=== PATIENT | male | born 1980 | race Caucasian/White ===

== ENCOUNTER 2017-06-12 21:03 | Emergency (ER) | payer OTHER ==
[~2017-06-12] VITALS: Ht 177.8 cm; Wt 120.2 kg
[~2017-06-12 21:03] MED LIST: AMOXICILLIN500 MG PO; ANTIBIOTIC O500 U/GM TP; ATIVAN2 MG PO; CLARITIN10 MG PO; CYMBALTA30 MG PO; FLEXERIL10 MG PO; FLEXERIL5 MG PO; FLONASE ALLERG9.9 ML NAS; HYDROCODONE BIT1 T11 PO; NAPROSYN500 MG PO; NKHM; NORFLEX100 MG PO; PREDNISONE10 MG PO; TOBRADEX 0.1%-0.5 ML OPH; ULTRAM50 MG PO; VICODIN ES 7501 TAB PO
[2017-06-12] MEDS ORDERED: NORCO 5-325 TA1 EACH PO (22:35)
[2017-06-12] MEDS ORDERED: MEDROL DOSEPAK4 MG PO (22:35)
[2017-06-12] MEDS ORDERED: Orphenadrine C100 MG PO (22:35)
== END 2017-06-12 22:50 | disposition home or self-care (01) ==
LOC: ED 21:03
DX: M54.31 Sciatica, right side (principal); Z79.899 Other long term (current) drug therapy

== ENCOUNTER → 2017-06-16 | Outpatient (CLI) | payer OTHER ==
[~2017-06-16] MED LIST changes: +MEDROL DOSEPAK4 MG PO; +NORCO 5-325 TA1 EACH PO; +Orphenadrine C100 MG PO
[2017-06-16 11:58] LABS: HEMOGLOBIN 17.4 g/dl (14.0-18.0); MEAN CELL VOLUME 88.5 fl (80.0-94.0); MEAN CORPUSCULAR HGB 30.2 pg (27.0-31.0); MEAN CORPUSCULAR HGB CONC 34.1 g/dl (33.0-37.0); MEAN PLATELET VOLUME 8.9 fl (9.6-12.3); PLATELET COUNT AUTOMATED 481 10*3/uL (130-400); RED BLOOD COUNT 5.76 10*6/uL (4.50-5.90); RED CELL DISTRI WIDTH 12.5 % (0-14.5); WHITE BLOOD COUNT 19.9 10*3/uL (4.8-10.8)
[2017-06-16 12:28] LABS: BASOPHILS 2 % (0-1); PLATELET SUFFICIENCY HIGH (NORMAL); TOTAL CELLS COUNTED 100 #CELLS
[2017-06-16 12:30] LABS: ALBUMIN 4.5 gm/dl (3.1-4.5); ALKALINE PHOSPHATASE 54 U/L (45-117); BUN 17 mg/dl (7-24); CHLORIDE 104 mmol/L (98-107); CHOLESTEROL 243 mg/dL (<200); CREATININE 0.91 mg/dL (0.70-1.30); HDL CHOLESTEROL 44 mg/dl (40-60); LDL CHOLESTEROL 159 mg/dL (9-159); POTASSIUM 3.9 mmol/L (3.5-5.1); SGOT/AST 13 IU/L (3-35); SGPT/ALT 43 U/L (12-78); SODIUM 139 mmol/L (136-145); TOTAL PROTEIN 8.1 gm/dL (6.4-8.2); TRIGLYCERIDES 200 mg/dl (<150); VLDL CHOLESTEROL 40 mg/dL (6-40)
[2017-06-16 13:10] LABS: VITAMIN D, 25-HYDROXY 26.9 ng/mL (30-100)
== END | disposition home or self-care (01) ==
LOC: RESCLI 06-15 07:54
PROVIDERS: Hospitalist
DX: Z00.01 Encounter for general adult medical examination with abnormal findings (principal); M54.5 Low back pain; G89.29 Other chronic pain; F41.8 Other specified anxiety disorders; I10 Essential (primary) hypertension

== ENCOUNTER → 2017-07-13 | Outpatient (CLI) | payer OTHER | END | disposition home or self-care (01) | LOC: RESCLI 02:05 | DX: I10 Essential (primary) hypertension (principal); M54.5 Low back pain; F41.8 Other specified anxiety disorders; E78.2 Mixed hyperlipidemia; E55.9 Vitamin D deficiency, unspecified; F32.9 Major depressive disorder, single episode, unspecified ==

== ENCOUNTER 2017-07-25 01:25 | Emergency (ER) | payer OTHER ==
[~2017-07-25] VITALS: Ht 177.8 cm; Wt 126.1 kg
[2017-07-25] MEDS ORDERED: GEODON20 MG PO (01:31)
[2017-07-25] MEDS ORDERED: PRINIVIL5 M1 PO (01:31)
[2017-07-25] MEDS ORDERED: ZOCOR40 MG PO (01:32)
[2017-07-25] MEDS ORDERED: CEPHALEXIN500 M1 PO (01:36)
== END 2017-07-25 01:59 | disposition home or self-care (01) ==
LOC: ED 01:25
DX: T63.301A Toxic effect of unspecified spider venom, accidental (unintentional), initial encounter (principal); Z79.899 Other long term (current) drug therapy; Y92.89 Other specified places as the place of occurrence of the external cause

== ENCOUNTER 2018-08-30 09:42 | Emergency (ER) | payer OTHER ==
[~2018-08-30] VITALS: Ht 177.8 cm; Wt 108.9 kg
[~2018-08-30 09:42] MED LIST changes: +CEPHALEXIN500 M1 PO; +GEODON20 MG PO; +PRINIVIL5 M1 PO; +ZOCOR40 MG PO
[2018-08-30 10:16] LABS: BILIRUBIN NEGATIVE (NEGATIVE); BLOOD 1+ (NEGATIVE); CLARITY CLEAR (CLEAR); COLOR YELLOW (YELLOW); GLUCOSE NEGATIVE (NEGATIVE); KETONE NEGATIVE (NEGATIVE); LEUKO ESTERASE NEGATIVE (NEGATIVE); NITRITE NEGATIVE (NEGATIVE); SPECIFIC GRAVITY 1.015 (1.005-1.030); UROBILINOGEN 0.2 E.U./dl (0.2-1.0)
[2018-08-30 10:21] LABS: HEMATOCRIT 44.8 % (42.0-52.0); HEMOGLOBIN 15.6 g/dl (14.0-18.0); MEAN CELL VOLUME 88.4 fl (80.0-94.0); MEAN CORPUSCULAR HGB 30.8 pg (27.0-31.0); MEAN CORPUSCULAR HGB CONC 34.8 g/dl (33.0-37.0); PLATELET COUNT AUTOMATED 320 10*3/uL (130-400); RED BLOOD COUNT 5.07 10*6/uL (4.50-5.90); WHITE BLOOD COUNT 23.1 10*3/uL (4.8-10.8)
[2018-08-30 10:32] LABS: EPITHELIAL CELLS 0-2
[2018-08-30 10:33] LABS: BACTERIA TRACE
[2018-08-30 10:36] LABS: ALBUMIN 3.8 gm/dl (3.1-4.5); ALKALINE PHOSPHATASE 75 U/L (45-117); BUN 13 mg/dl (7-24); CHLORIDE 104 mmol/L (98-107); CREATININE 1.48 mg/dL (0.70-1.30); LIPASE 40 U/L (73-393); POTASSIUM 3.4 mmol/L (3.5-5.1); SGOT/AST 11 IU/L (3-35); SGPT/ALT 30 U/L (12-78); SODIUM 137 mmol/L (136-145); TOTAL PROTEIN 7.3 gm/dL (6.4-8.2)
[2018-08-30 10:39] LABS: ATYPICAL LYMPHS 1 % (0-0); PLATELET SUFFICIENCY NORMAL (NORMAL); TOTAL CELLS COUNTED 100 #CELLS
== END 2018-08-30 13:55 | disposition short-term general hospital (02) ==
LOC: ED 09:42
PROVIDERS: Emergency Medicine
DX: A41.9 Sepsis, unspecified organism (principal); N20.0 Calculus of kidney; R11.2 Nausea with vomiting, unspecified; R10.31 Right lower quadrant pain; Z79.899 Other long term (current) drug therapy

== ENCOUNTER 2019-03-15 00:06 | Emergency (ER) | payer OTHER ==
[~2019-03-15] VITALS: Ht 177.8 cm; Wt 106.6 kg
[2019-03-15] MEDS ORDERED: CYCLOBENZAPRINE5 M3 PO (01:01)
[2019-03-15] MEDS ORDERED: Motrin,Rufen800 MG PO (01:01)
== END 2019-03-15 01:46 | disposition home or self-care (01) ==
LOC: ED 00:06
DX: M54.5 Low back pain (principal); G89.29 Other chronic pain; I10 Essential (primary) hypertension; F17.200 Nicotine dependence, unspecified, uncomplicated; Z79.899 Other long term (current) drug therapy

== ENCOUNTER 2019-03-17 15:52 | Emergency (ER) | payer OTHER ==
[~2019-03-17] VITALS: Ht 177.8 cm; Wt 106.6 kg
[~2019-03-17 15:52] MED LIST changes: +CYCLOBENZAPRINE5 M3 PO; +Motrin,Rufen800 MG PO
[2019-03-17] MEDS ORDERED: MEDROL DOSEPAK4 MG PO (18:02)
== END 2019-03-17 18:10 | disposition home or self-care (01) ==
LOC: ED 15:52
DX: S39.012A Strain of muscle, fascia and tendon of lower back, initial encounter (principal); Z79.899 Other long term (current) drug therapy; X58.XXXA Exposure to other specified factors, initial encounter; Y93.89 Activity, other specified; Y92.89 Other specified places as the place of occurrence of the external cause; Y99.0 Civilian activity done for income or pay

== ENCOUNTER → 2020-11-27 | Outpatient (CLI) | payer OTHER ==
[2020-11-27 09:56] LABS: HEMATOCRIT 45.1 % (42.0-52.0); MEAN CELL VOLUME 91.1 fl (80.0-94.0); MEAN CORPUSCULAR HGB 30.9 pg (27.0-31.0); MEAN CORPUSCULAR HGB CONC 33.9 g/dl (33.0-37.0); MEAN PLATELET VOLUME 8.5 fl (9.6-12.3); PLATELET COUNT AUTOMATED 326 10*3/uL (130-400); RED BLOOD COUNT 4.95 10*6/uL (4.50-5.90); RED CELL DISTRI WIDTH 12.2 % (0-14.5)
[2020-11-27 10:19] LABS: ALBUMIN 3.9 gm/dl (3.1-4.5); BUN 23 mg/dl (7-24); CHLORIDE 109 mmol/L (98-107); CHOLESTEROL 222 mg/dL (<200); CREATININE 0.73 mg/dL (0.70-1.30); POTASSIUM 4.2 mmol/L (3.5-5.1); SGOT/AST 24 IU/L (3-35); SGPT/ALT 65 U/L (12-78); SODIUM 140 mmol/L (136-145); TOTAL PROTEIN 7.3 gm/dL (6.4-8.2); TRIGLYCERIDES 328 mg/dl (<150)
[2020-11-27 10:28] LABS: ALKALINE PHOSPHATASE 56 U/L (45-117); LDL CHOLESTEROL 124 mg/dL (9-159)
[2020-11-27 11:22] LABS: PLATELET SUFFICIENCY NORMAL (NORMAL); TOTAL CELLS COUNTED 100 #CELLS
== END | disposition home or self-care (01) ==
LOC: RESCLI 08:38
PROVIDERS: Internal Medicine; ATTEND Student in an Organized Health Care Education/Training Program
DX: R00.2 Palpitations (principal); N20.0 Calculus of kidney; F41.8 Other specified anxiety disorders; I10 Essential (primary) hypertension; Z79.899 Other long term (current) drug therapy

== ENCOUNTER 2020-12-07 18:07 | Emergency (ER) | payer OTHER ==
[~2020-12-07] VITALS: Ht 177.8 cm; Wt 116.6 kg
[2020-12-07 22:40] LABS: BILIRUBIN Negative (Negative); BLOOD Negative (Negative); CLARITY Clear (Clear); COLOR Yellow (Yellow); GLUCOSE Negative (Negative); KETONE Negative (Negative); LEUKO ESTERASE Negative (Negative); NITRITE Negative (Negative); PH 5.5 (4.5-8.0); SPECIFIC GRAVITY >= 1.030 (1.001-1.030)
[2020-12-08 00:07] LABS: BACTERIA TRACE
[2020-12-08 01:40] LABS: HEMATOCRIT 48.2 % (42.0-52.0); MEAN CELL VOLUME 93.4 fl (80.0-94.0); MEAN CORPUSCULAR HGB 30.6 pg (27.0-31.0); MEAN CORPUSCULAR HGB CONC 32.8 g/dl (33.0-37.0); MEAN PLATELET VOLUME 8.6 fl (9.6-12.3); PLATELET COUNT AUTOMATED 334 10*3/uL (130-400); RED BLOOD COUNT 5.16 10*6/uL (4.50-5.90); RED CELL DISTRI WIDTH 12.2 % (0-14.5); WHITE BLOOD COUNT 10.6 10*3/uL (4.8-10.8)
[2020-12-08 01:59] LABS: ALKALINE PHOSPHATASE 55 U/L (45-117); ATYPICAL LYMPHS 2 % (0-0); BASOPHILS 3 % (0-1); BUN 20 mg/dl (7-24); CHLORIDE 107 mmol/L (98-107); CREATININE 0.82 mg/dL (0.70-1.30); PLATELET SUFFICIENCY NORMAL (NORMAL); POTASSIUM 4.4 mmol/L (3.5-5.1); SGOT/AST 13 IU/L (3-35); SGPT/ALT 48 U/L (12-78); SODIUM 142 mmol/L (136-145); TOTAL CELLS COUNTED 100 #CELLS; TOTAL PROTEIN 7.5 gm/dL (6.4-8.2)
== END 2020-12-08 05:17 | disposition home or self-care (01) ==
LOC: ED 18:07
PROVIDERS: Emergency Medicine; Physician Assistant
DX: S46.912A Strain of unspecified muscle, fascia and tendon at shoulder and upper arm level, left arm, initial encounter (principal); Z79.899 Other long term (current) drug therapy; V43.52XA Car driver injured in collision with other type car in traffic accident, initial encounter; Y93.89 Activity, other specified; Y92.89 Other specified places as the place of occurrence of the external cause; Y99.8 Other external cause status

== ENCOUNTER → 2020-12-23 | Outpatient (CLI) | payer OTHER | END | disposition home or self-care (01) | LOC: RESCLI 00:43 | PROVIDERS: ATTEND Internal Medicine Nephrology | DX: I10 Essential (primary) hypertension (principal); F41.8 Other specified anxiety disorders; R53.82 Chronic fatigue, unspecified; E55.9 Vitamin D deficiency, unspecified; Z79.899 Other long term (current) drug therapy ==

== ENCOUNTER 2021-04-28 13:57 | Emergency (ER) | payer OTHER ==
[2021-04-28 14:32] LABS: BILIRUBIN Negative (Negative); BLOOD 2+ (Negative); CLARITY Clear (Clear); COLOR Yellow (Yellow); GLUCOSE Negative (Negative); KETONE Negative (Negative); LEUKO ESTERASE Negative (Negative); NITRITE Negative (Negative); PH 5.5 (4.5-8.0); UROBILINOGEN 0.2 E.U./dl (0.0-1.0)
[2021-04-28 14:53] LABS: RBC 31-40 rbc/hpf (0-2); WBC 0-2 wbc/hpf (0-5)
[2021-04-28 14:54] LABS: BACTERIA TRACE
[2021-04-28 15:34] LABS: BASO # 0.1 10*3/uL (0.0-0.1); BASO % 0.8 % (0.0-1.0); EOS # 0.1 10*3/uL (0.0-0.4); EOS % 0.6 % (1.0-4.0); HEMATOCRIT 45.1 % (42.0-52.0); LYMPH # 1.1 10*3/uL (1.3-4.4); LYMPH % 13.3 % (27.0-41.0); MEAN CELL VOLUME 88.1 fl (80.0-94.0); MEAN CORPUSCULAR HGB 30.5 pg (27.0-31.0); MEAN CORPUSCULAR HGB CONC 34.6 g/dl (33.0-37.0); MONO # 0.6 10*3/uL (0.1-1.0); MONO % 7.6 % (3.0-9.0); NEUT # 6.1 10*3/uL (2.3-7.9); NEUT % 76.2 % (47.0-73.0); PLATELET COUNT AUTOMATED 282 10*3/uL (130-400); RED BLOOD COUNT 5.12 10*6/uL (4.50-5.90); RED CELL DISTRI WIDTH 11.8 % (0-14.5)
[2021-04-28] MEDS ORDERED: HYDROCODON-ACE1 EACH PO (16:00)
[2021-04-28] MEDS ORDERED: ZOFRAN4 MG PO (16:00)
[2021-04-28 16:06] LABS: ALKALINE PHOSPHATASE 54 U/L (45-117); BUN 19 mg/dl (7-24); CHLORIDE 108 mmol/L (98-107); POTASSIUM 4.6 mmol/L (3.5-5.1); SGOT/AST 21 IU/L (3-35); SGPT/ALT 46 U/L (12-78); SODIUM 136 mmol/L (136-145); TOTAL PROTEIN 7.2 gm/dL (6.4-8.2)
== END 2021-04-28 16:03 | disposition home or self-care (01) ==
LOC: ED 13:57
PROVIDERS: Nurse Practitioner Family
DX: N13.2 Hydronephrosis with renal and ureteral calculous obstruction (principal); Z79.899 Other long term (current) drug therapy

== ENCOUNTER → 2021-05-21 | Outpatient (CLI) | payer OTHER ==
[~2021-05-21] MED LIST changes: +HYDROCODON-ACE1 EACH PO; +ZOFRAN4 MG PO
[2021-05-21 11:27] LABS: BASO # 0.1 10*3/uL (0.0-0.1); BASO % 0.9 % (0.0-1.0); EOS # 0.2 10*3/uL (0.0-0.4); EOS % 2.3 % (1.0-4.0); HEMATOCRIT 43.2 % (42.0-52.0); LYMPH # 2.1 10*3/uL (1.3-4.4); LYMPH % 28.2 % (27.0-41.0); MEAN CELL VOLUME 89.8 fl (80.0-94.0); MEAN CORPUSCULAR HGB 30.6 pg (27.0-31.0); MEAN PLATELET VOLUME 8.9 fl (9.6-12.3); MONO # 0.8 10*3/uL (0.1-1.0); MONO % 10.4 % (3.0-9.0); NEUT # 4.2 10*3/uL (2.3-7.9); NEUT % 56.2 % (47.0-73.0); PLATELET COUNT AUTOMATED 345 10*3/uL (130-400); RED BLOOD COUNT 4.81 10*6/uL (4.50-5.90); RED CELL DISTRI WIDTH 11.7 % (0-14.5); WHITE BLOOD COUNT 7.5 10*3/uL (4.8-10.8)
[2021-05-21 11:28] LABS: BILIRUBIN Negative (Negative); BLOOD 2+ (Negative); CLARITY Clear (Clear); COLOR Yellow (Yellow); GLUCOSE Negative (Negative); KETONE Negative (Negative); LEUKO ESTERASE Negative (Negative); NITRITE Negative (Negative); SPECIFIC GRAVITY 1.025 (1.001-1.030)
[2021-05-21 11:43] LABS: ALKALINE PHOSPHATASE 53 U/L (45-117); BUN 18 mg/dl (7-24); CHLORIDE 108 mmol/L (98-107); CREATININE 0.79 mg/dL (0.70-1.30); SGOT/AST 20 IU/L (3-35); SGPT/ALT 43 U/L (12-78); SODIUM 141 mmol/L (136-145); T3 UPTAKE 37 % (31-39); THYROXINE (T4) TOTAL 8.4 ug/dl (4.5-12.1); TOTAL PROTEIN 7.1 gm/dL (6.4-8.2)
[2021-05-21 16:58] LABS: MUCOUS 1+; RBC 41-50 rbc/hpf (0-2)
== END | disposition home or self-care (01) ==
LOC: LAB 10:53
PROVIDERS: ATTEND Urology
DX: N20.0 Calculus of kidney (principal); E83.50 Unspecified disorder of calcium metabolism; R31.9 Hematuria, unspecified

== ENCOUNTER → 2021-06-04 | Outpatient (CLI) | payer OTHER | END | disposition home or self-care (01) | LOC: US 10:30 | PROVIDERS: ATTEND Urology | DX: N13.30 Unspecified hydronephrosis (principal); N20.0 Calculus of kidney; M61.9 Calcification and ossification of muscle, unspecified ==

== ENCOUNTER 2021-09-22 13:52 | Emergency (ER) | payer OTHER ==
[~2021-09-22] VITALS: Ht 177.8 cm; Wt 122.5 kg
[2021-09-22 15:08] LABS: HEMATOCRIT 43.8 % (42.0-52.0); MEAN CELL VOLUME 87.8 fl (80.0-94.0); MEAN CORPUSCULAR HGB 30.1 pg (27.0-31.0); MEAN CORPUSCULAR HGB CONC 34.2 g/dl (33.0-37.0); MEAN PLATELET VOLUME 8.8 fl (9.6-12.3); PLATELET COUNT AUTOMATED 296 10*3/uL (130-400); RED BLOOD COUNT 4.99 10*6/uL (4.50-5.90); RED CELL DISTRI WIDTH 11.9 % (0-14.5); WHITE BLOOD COUNT 6.1 10*3/uL (4.8-10.8)
[2021-09-22 15:10] LABS: MANUAL DIFF REFLEX YES
[2021-09-22 15:33] LABS: BILIRUBIN Negative (Negative); BLOOD Negative (Negative); CLARITY Clear (Clear); COLOR Yellow (Yellow); GLUCOSE Negative (Negative); KETONE Negative (Negative); LEUKO ESTERASE Negative (Negative); NITRITE Negative (Negative); PH 5.5 (4.5-8.0); UROBILINOGEN 0.2 E.U./dl (0.0-1.0)
[2021-09-22 15:33] LABS: BUN 9 mg/dl (7-24); CHLORIDE 110 mmol/L (98-107); CREATININE 0.81 mg/dL (0.70-1.30); LIPASE 92 U/L (73-393); POTASSIUM 3.7 mmol/L (3.5-5.1); SGOT/AST 14 IU/L (3-35); SGPT/ALT 35 U/L (12-78); SODIUM 141 mmol/L (136-145); TOTAL PROTEIN 6.7 gm/dL (6.4-8.2)
[2021-09-22 15:34] LABS: ALKALINE PHOSPHATASE 51 U/L (45-117)
[2021-09-22 15:36] LABS: ATYPICAL LYMPHS 1 % (0-0); BASOPHILS 1 % (0-1); TOTAL CELLS COUNTED 100 #CELLS
[2021-09-22 15:37] LABS: PLATELET SUFFICIENCY NORMAL (NORMAL)
[2021-09-22 15:54] LABS: BACTERIA 1+; EPITHELIAL CELLS 0-2; MUCOUS 1+; WBC 0-2 wbc/hpf (0-5)
[2021-09-22] MEDS ORDERED: Motrin,Rufen800 MG PO (20:48)
== END 2021-09-22 20:46 | disposition home or self-care (01) ==
LOC: ED 13:52
PROVIDERS: Physician Assistant
DX: K40.90 Unilateral inguinal hernia, without obstruction or gangrene, not specified as recurrent (principal); K76.89 Other specified diseases of liver; R10.11 Right upper quadrant pain; Z79.899 Other long term (current) drug therapy

== ENCOUNTER → 2021-11-10 | Day surgery (SDC) | payer OTHER ==
[~2021-11-10] VITALS: Ht 177.8 cm; Wt 122.5 kg
[~2021-11-10] MED LIST changes: +DICYCLOMINE HCL10 MG PO
[2021-11-10 07:37] VITALS: BP 159/88
[2021-11-10 08:19] VITALS: BP 131/71
[2021-11-10 08:30] VITALS: BP 143/98
[2021-11-10 08:49] VITALS: BP 155/97
== END | disposition home or self-care (01) ==
LOC: SDC 11-06 09:30
PROVIDERS: ATTEND Surgery
DX: R10.9 Unspecified abdominal pain (principal); K29.50 Unspecified chronic gastritis without bleeding; I10 Essential (primary) hypertension; F41.9 Anxiety disorder, unspecified; F32.9 Major depressive disorder, single episode, unspecified; Z87.891 Personal history of nicotine dependence; Z79.899 Other long term (current) drug therapy

== ENCOUNTER 2022-06-16 00:36 | Emergency (ER) | payer OTHER ==
[~2022-06-16] VITALS: Ht 177.8 cm; Wt 122.5 kg
[2022-06-16] MEDS ORDERED: AMOXICILLIN500 M2 PO (01:08)
== END 2022-06-16 01:20 | disposition home or self-care (01) ==
LOC: ED 00:36
DX: K02.9 Dental caries, unspecified (principal); I10 Essential (primary) hypertension; F41.9 Anxiety disorder, unspecified; Z87.442 Personal history of urinary calculi; F32.A Depression, unspecified; Z87.891 Personal history of nicotine dependence

== ENCOUNTER 2023-04-27 16:03 | Emergency (ER) | payer OTHER ==
[~2023-04-27] VITALS: Ht 177.8 cm; Wt 131.5 kg
[~2023-04-27 16:03] MED LIST changes: +AMOXICILLIN500 M2 PO
[2023-04-27 16:31] LABS: HEMATOCRIT 46.4 % (42.0-52.0); MANUAL DIFF REFLEX YES; MEAN CELL VOLUME 88.5 fl (80.0-94.0); MEAN CORPUSCULAR HGB 30.3 pg (27.0-31.0); MEAN CORPUSCULAR HGB CONC 34.3 g/dl (33.0-37.0); MEAN PLATELET VOLUME 8.5 fl (9.6-12.3); PLATELET COUNT AUTOMATED 347 10*3/uL (130-400); RED BLOOD COUNT 5.24 10*6/uL (4.50-5.90); RED CELL DISTRI WIDTH 11.9 % (0-14.5); WHITE BLOOD COUNT 11.1 10*3/uL (4.8-10.8)
[2023-04-27] MEDS ORDERED: Metoprolol Tartrate 5 MG/5 ML VIAL IV ONE (16:40)
[2023-04-27] MEDS ORDERED: SODIUM CHLORIDE 0.9% 1,000 ML IV ONE (16:40)
[2023-04-27 16:41] LABS: ACT PARTIAL THROMBO TIME 34.6 SECONDS (20.0-32.1)
[2023-04-27 16:51] LABS: ALKALINE PHOSPHATASE 68 U/L (46-116); BUN 13 mg/dl (9-23); CHLORIDE 106 mmol/L (98-107); POTASSIUM 3.6 mmol/L (3.4-5.1); SGPT/ALT 38 U/L (5-49); TOTAL PROTEIN 7.6 gm/dL (6.0-8.0)
[2023-04-27 17:20] LABS: PLATELET SUFFICIENCY NORMAL (NORMAL); TOTAL CELLS COUNTED 100 #CELLS
[2023-04-27] MEDS ORDERED: METOPROLOL SUCC25 M2 PO (18:36)
== END 2023-04-27 21:21 | disposition home or self-care (01) ==
LOC: ED 16:03
PROVIDERS: Student in an Organized Health Care Education/Training Program
DX: I47.11 Inappropriate sinus tachycardia, so stated (principal); I10 Essential (primary) hypertension; F41.9 Anxiety disorder, unspecified; F32.A Depression, unspecified; Z87.442 Personal history of urinary calculi

== ENCOUNTER → 2023-06-16 | Outpatient (CLI) | payer OTHER ==
[~2023-06-16] MED LIST changes: +METOPROLOL SUCC25 M2 PO
== END | disposition home or self-care (01) ==
LOC: CARD 00:35
PROVIDERS: ATTEND Internal Medicine
DX: R00.0 Tachycardia, unspecified (principal)

== ENCOUNTER → 2023-10-30 | Outpatient (CLI) | payer OTHER | END | disposition home or self-care (01) | LOC: US 10-29 09:30 | PROVIDERS: ATTEND Internal Medicine | DX: K76.89 Other specified diseases of liver (principal); K76.0 Fatty (change of) liver, not elsewhere classified; K82.4 Cholesterolosis of gallbladder ==

== ENCOUNTER → 2024-09-10 | Emergency (ER) | payer BC ==
[~2024-09-10] VITALS: Ht 177.8 cm; Wt 113.4 kg
[~2024-09-10] MED LIST changes: +AMOX-CLAV 875-1 EACH PO
[2024-09-10 08:46] LABS: MEAN CELL VOLUME 89.4 fl (80.0-94.0); MEAN CORPUSCULAR HGB 29.9 pg (27.0-31.0); MEAN PLATELET VOLUME 8.4 fl (9.6-12.3); NUCLEATED RED BLOOD CELL 0.0 % (0.0-0.0); NUCLEATED RED BLOOD CELL 0.0 10*3/uL (0.0-0.0); PLATELET COUNT AUTOMATED 195 10*3/uL (130-400); RED CELL DISTRI WIDTH 12.4 % (0-14.5)
[2024-09-10 09:01] LABS: MANUAL DIFF REFLEX YES
[2024-09-10 09:06] LABS: BUN 13 mg/dl (9-23); PLATELET SUFFICIENCY NORMAL (NORMAL)
== END ==
LOC: ED 07:56
PROVIDERS: Internal Medicine
DX: J32.9 Chronic sinusitis, unspecified (principal); Z79.899 Other long term (current) drug therapy; Z87.442 Personal history of urinary calculi